=== PATIENT | female | born 1985 | race Caucasian/White ===

== ENCOUNTER 2016-08-28 19:38 | Emergency (ER) | payer OTHER ==
[~2016-08-28] VITALS: Ht 162.6 cm; Wt 75.0 kg
[~2016-08-28 19:38] MED LIST: BCP TD; FLOVENT0.044 MG/A IH; NUVARING1 ICR VG; PREDNISONE20 MG PO; VENTOLIN0.09 MG IH
[2016-08-28 19:43] VITALS: TEMP 98.2
[2016-08-28] MEDS ORDERED: LEXAPRO20 MG PO (19:47)
[2016-08-28] MEDS ORDERED: PRENATAL (19:48)
[2016-08-28 20:21] LABS: PH 5 (5-8); URINE APPEARANCE Clear; URINE BILIRUBIN Negative (NEGATIVE); URINE BLOOD Negative (NEGATIVE); URINE COLOR Colorless; URINE GLUCOSE Negative (NEGATIVE); URINE KETONE Negative (NEGATIVE); URINE UROBILINOGEN Negative (NEGATIVE)
[2016-08-28 20:28] LABS: URINE BACTERIA Rare /hpf; URINE RBC None Seen /hpf; URINE WBC 0-2 /hpf
[2016-08-28 20:41] VITALS: BP 118/69; PULSE 74
== END 2016-08-28 20:41 | disposition home or self-care (01) ==
LOC: COL.ER 19:38
PROVIDERS: Physician Assistant
DX: Z04.1 Encounter for examination and observation following transport accident (principal); Z34.91 Encounter for supervision of normal pregnancy, unspecified, first trimester

== ENCOUNTER 2017-04-03 11:27 | Outpatient (CLI) | payer BC ==
[~2017-04-03 11:27] MED LIST changes: +LEXAPRO20 MG PO; +PRENATAL
[2017-04-03 12:00] VITALS: BP 119/66; PULSE 74
[2017-04-03 12:03] VITALS: BP 111/69; PULSE 75; TEMP 98.5
[2017-04-03] MEDS ORDERED: CALCIUM CARBON650 M2 (12:11)
[2017-04-03 12:30] VITALS: BP 114/59; PULSE 77
[2017-04-03 13:00] VITALS: PULSE 64
[2017-04-03 14:00] VITALS: BP 114/62; PULSE 65
[2017-04-03 14:30] VITALS: BP 112/67; PULSE 66
== END 2017-04-03 16:25 | disposition home or self-care (01) ==
LOC: LDRO 11:27 → LDR 11:35 → LDRO 16:25
DX: O42.913 Preterm premature rupture of membranes, unspecified as to length of time between rupture and onset of labor, third trimester (principal); Z3A.36 36 weeks gestation of pregnancy
CPT/HCPCS: OP

== ENCOUNTER 2017-04-03 21:29 | Inpatient (IN) | payer BC ==
[~2017-04-03] VITALS: Ht 162.6 cm; Wt 100.0 kg
[2017-04-03] VITALS (7 sets, daily range): BP systolic 115–132; BP diastolic 59–78; PULSE 76–95; TEMP 97.5–99
[~2017-04-03 21:29] MED LIST changes: +CALCIUM CARBON650 M2
[2017-04-03 22:53] LABS: BASO % 0.2 % (0.0-2.0); EOS % 0.1 % (0-4.0); GRAN # 9.8 (1.4-6.5); GRAN % 78.3 % (42.2-75.2); HEMATOCRIT 37.5 % (37.0-47.0); HEMOGLOBIN 12.9 g/dl (12.5-16.0); LYMPH # 1.7 (1.2-3.4); LYMPH % 13.7 % (20.0-51.0); MEAN CELL VOLUME 86 fl (80.0-100.0); MEAN CORPUSCULAR HEMOGLOBIN 30 pg (27.0-31.0); MEAN CORPUSCULAR HGB CONC 34 g/dl (33.0-37.0); MONO # 0.9 (0.1-0.6); MONO % 6.8 % (1.7-9.3); PLATELET COUNT 263 K/mm3 (130-400); RED BLOOD COUNT 4.38 M/mm3 (4.10-5.30); REDCELL DISTRIBUTION WIDTH-CV 14.6 % (11.5-14.5); WHITE BLOOD COUNT 12.6 K/mm3 (4.8-10.8)
[2017-04-04] VITALS (28 sets, daily range): BP systolic 101–142; BP diastolic 51–81; PULSE 75–113; TEMP 97.2–98.6
[2017-04-05 08:00] VITALS: BP 117/62; PULSE 80; TEMP 97.5
[2017-04-05] MEDS ORDERED: IBU800 M1 PO (08:33)
[2017-04-05] MEDS ORDERED: PERCOCET 325 MG1 TA2 PO (08:33)
[2017-04-05 17:30] VITALS: BP 120/62; PULSE 84; TEMP 97.5
[2017-04-05 20:45] VITALS: BP 119/61; PULSE 64; TEMP 98
[2017-04-06 08:23] VITALS: BP 116/63; PULSE 77; TEMP 98.1
== END 2017-04-06 09:10 | disposition home or self-care (01) | DRG 775 ==
LOC: LDRO 21:29 → LDR 22:28 → OB 04-04 08:30
PROVIDERS: Student in an Organized Health Care Education/Training Program
PROC: 10E0XZZ Delivery of Products of Conception, External Approach (ICD-10-PCS; principal; 2017-04-04)
PROC: 0KQM0ZZ Repair Perineum Muscle, Open Approach (ICD-10-PCS; 2017-04-04)
DX: O99.824 Streptococcus B carrier state complicating childbirth (principal); O70.1 Second degree perineal laceration during delivery; O99.344 Other mental disorders complicating childbirth; F32.9 Major depressive disorder, single episode, unspecified; Z3A.37 37 weeks gestation of pregnancy; Z37.0 Single live birth
CPT/HCPCS: J2405; J2540; J2590; J7120

== ENCOUNTER 2019-01-09 11:37 | Inpatient (IN) | payer BC ==
[~2019-01-09] VITALS: Ht 162.6 cm; Wt 96.4 kg
[2019-01-09] VITALS (31 sets, daily range): BP systolic 94–137; BP diastolic 48–82; PULSE 64–104; TEMP 97.7–98.7
[~2019-01-09 11:37] MED LIST changes: +IBU800 M1 PO; +PERCOCET 325 MG1 TA2 PO
[2019-01-09] MEDS ORDERED: ZANTAC 150MG T150 MG PO (11:51)
[2019-01-09] MEDS ORDERED: CALCIUM CARBON650 M2 (11:51)
--- NOTE | 2019-01-09 12:00 | NUR ---
1135 G2L1 at 37.5 weeks gestation to R5 for heart rate monitoring. She was sent over from the office where the FHR was 80-100 bpm. Patient changed into gown, wedged left in bed. Dr. Harding at bedside, bedside sono performed. EFMs explained and applied and FHR 140 bpm with moderate variability. Plan of care to continue to monitor FHR over the next hour.
--- NOTE | 2019-01-09 12:16 | NUR ---
FHR intermittently tracing, this nurse at bedside adjusting EFM, FHR tracing at 80-90 bpm during this time. 1221 FHR returns to baseline of [address] Barrett called and updated. Orders to continue monitoring.
--- NOTE | 2019-01-09 14:10 | NUR ---
Dr. Harding on unit. Reviews FHR tracing. To patient room, discusses plan of care to induce labor tonight. SVE /3. Labor induction orders received.
--- NOTE | 2019-01-09 14:45 | NUR ---
Pitocin started at 2mu per orders and protocol.
--- NOTE | 2019-01-09 15:21 | NUR ---
FHR down to 80-90 bpm over 3 minutes. Spontaneous return to baseline of 130 bpm.
[2019-01-09 15:39] LABS: BASO % 0.4 % (0.0-2.0); EOS # 0.1 (0.0-0.7); EOS % 0.5 % (0-4.0); GRAN # 8.3 (1.4-6.5); GRAN % 75.1 % (42.2-75.2); LYMPH # 1.9 (1.2-3.4); LYMPH % 16.9 % (20.0-51.0); MEAN CELL VOLUME 86 fl (80.0-100.0); MEAN CORPUSCULAR HEMOGLOBIN 28 pg (27.0-31.0); MEAN CORPUSCULAR HGB CONC 33 g/dl (33.0-37.0); MEAN PLATELET VOLUME 10.4 fl (7.4-10.4); MONO # 0.7 (0.1-0.6); MONO % 6.4 % (1.7-9.3); PLATELET COUNT 256 K/mm3 (130-400); RED BLOOD COUNT 4.23 M/mm3 (4.10-5.30); REDCELL DISTRIBUTION WIDTH-CV 14.6 % (11.5-14.5)
[2019-01-09 15:54] LABS: HEMATOCRIT 36.4 % (37.0-47.0)
--- NOTE | 2019-01-09 17:15 | NUR ---
Dr. Harding at bedside. Reviews FHR tracing. Discusses plan of care. Orders to continue increasing pitocin per protocol. Pitocin increased to 10mu.
--- NOTE | 2019-01-09 17:40 | NUR ---
1724 FHR down to 80-90 bpm, intermittently tracing. This nurse to room to adjust EFM. Patient turned to left side, IVF bolus started, pitocin turned off and O2 applied at 10L per mask. 1730 FHR not tracing but briefly heard at [address] Barrett on unit and called to patient room. Dr. Harding called. [id number] SVE with AROM and scalp electrode placement by Dr. Barrett. Scalp electrode not tracing FHR, but EFM traces at 90-110 bpm from 0530-5261. [address] Barrett calls c/s. Dr. Harding updated. 1739 Patient to OR via bed.
--- NOTE | 2019-01-09 17:53 | NUR ---
[id number] FHR tracing by scalp electrode at 120 bpm in OR.
--- NOTE | 2019-01-09 21:00 | NUR ---
2100 PERICARE DONE. MOVED FROM SIDE TO SIDE AND ABD BINDER ON. IV INFUSED AND TO INT. REG DIET TAKEN. BABY OUT TO ROOM
[2019-01-10 05:00] VITALS: BP 93/51; PULSE 62; TEMP 97.6
[2019-01-10 06:02] LABS: HEMOGLOBIN 10.9 g/dl (12.5-16.0)
[2019-01-10 06:04] LABS: HEMATOCRIT 33.5 % (37.0-47.0)
[2019-01-10 07:25] VITALS: BP 130/92; PULSE 77; TEMP 98.5
[2019-01-10 11:30] VITALS: BP 106/56; PULSE 70; TEMP 98.5
[2019-01-10 17:00] VITALS: BP 101/48; PULSE 64; TEMP 98.9
[2019-01-10 20:00] VITALS: BP 109/59; PULSE 64; TEMP 98
[2019-01-11 04:00] VITALS: BP 101/62; PULSE 74; TEMP 97.9
[2019-01-11 07:45] VITALS: BP 116/82; PULSE 82; TEMP 98.3
[2019-01-11] MEDS ORDERED: MOTRIN 800800 MG/TAB PO (09:36)
[2019-01-11] MEDS ORDERED: PERCOCET 325 MG1 TA2 PO (09:37)
== END 2019-01-11 16:30 | disposition home or self-care (01) | DRG 787 ==
LOC: LDRO 11:37 → LDR 11:37 → LDRO 14:15 → LDR 14:15 → OB 19:30
PROVIDERS: ADMIT Obstetrics & Gynecology
PROC: 10D00Z1 Extraction of Products of Conception, Low, Open Approach (ICD-10-PCS; principal; 2019-01-09)
PROC: 3E033VJ Introduction of Other Hormone into Peripheral Vein, Percutaneous Approach (ICD-10-PCS; 2019-01-09)
DX: O76 Abnormality in fetal heart rate and rhythm complicating labor and delivery (principal); O98.82 Other maternal infectious and parasitic diseases complicating childbirth; B95.1 Streptococcus, group B, as the cause of diseases classified elsewhere; Z3A.37 37 weeks gestation of pregnancy; Z37.0 Single live birth; O99.344 Other mental disorders complicating childbirth; J45.909 Unspecified asthma, uncomplicated; O99.214 Obesity complicating childbirth; O61.8 Other failed induction of labor
CPT/HCPCS: J0690; J1885; J2175; J2370; J2405; J2540; J2590; J3010; J7120

== ENCOUNTER 2022-01-29 04:11 | Inpatient (IN) | payer BC ==
[2022-01-29] VITALS (24 sets, daily range): BP systolic 92–132; BP diastolic 55–83; PULSE 64–126; TEMP 97.7–98.7
[~2022-01-29] VITALS: Ht 165.1 cm; Wt 95.5 kg
[~2022-01-29 04:11] MED LIST changes: +MOTRIN 800800 MG/TAB PO; +ZANTAC 150MG T150 MG PO
[2022-01-29 05:19] LABS: BASO % 0.2 % (0.0-2.0); EOS % 0.1 % (0.0-4.0); GRAN # 7.6 K/mm3 (1.4-6.5); GRAN % 86.1 % (42.2-75.2); HEMATOCRIT 38.6 % (37.0-47.0); HEMOGLOBIN 13.1 g/dl (12.5-16.0); LYMPH # 0.5 K/mm3 (1.2-3.4); MEAN CELL VOLUME 86 fl (80.0-100.0); MEAN CORPUSCULAR HEMOGLOBIN 29 pg (27-31); MEAN CORPUSCULAR HGB CONC 34 g/dl (33.0-37.0); MONO # 0.6 K/mm3 (0.1-0.6); MONO % 6.9 % (1.7-9.3); PLATELET COUNT 222 K/mm3 (130-400); RED BLOOD COUNT 4.51 M/mm3 (4.10-5.30); REDCELL DISTRIBUTION WIDTH-CV 14.2 % (11.5-14.5)
--- NOTE | 2022-01-29 06:30 | NUR ---
0615- This RN to bedside, Pt in bathroom. Verbal report recieved from Lety Quesada RN. Akiko, MERLYN at bedside for epidural placment. 0617- Pt sitting on side of bed for epidural placement. O2 sat monitor on and tracing maternal HR. 0624- Single shot by PULLING UNIT FLOORHAND, see anesthesia record. 0627- Pt assisted to semi-flowlers with WL. EFM and TOCO adjusted. O2 sat monitor off.
--- NOTE | 2022-01-29 07:00 | NUR ---
0648- FHR deceleration noted down to 60's, lasting approx. 2mins. SVE by this RN /-2. Anjelica Collazo RN at bedside. Pt assisted to LL. 0653- Bhatt placed with Pt LL. O2 sat monitor on and tracing maternal HR. 0656- FHR decel noted, down to 60, Pt assisted into RHODA position, tolerated well.
--- NOTE | 2022-01-29 07:15 | NUR ---
0706- Dr Hsieh at bedside. SVE /-2, reviews strip. Pt assisted to LL with right leg on stirrup. EFM and TOOC adjusted. discusses strip and POC with Pt/. This RN remains at bedside. remains on unit.
--- NOTE | 2022-01-29 07:45 | NUR ---
Recurrent FHR late decelerations noted with each UC. 0733- Pt repositioned to RL with LLS. SVE by this RN 8-/-2. 0739- Dr Hsieh at bedside. SVE , FSE placed per RN request. remains at nurses station monitoring strip. This RN remains at bedside.
--- NOTE | 2022-01-29 08:00 | NUR ---
0752- Dr Hsieh at bedside. SVE 9100/+2, Pt repositioned to LL. 0755- FHR decel with marked variability. SVE by , complete/+2. Pt and room prepped for delivery. FHR variables down to 60's with marked variability. Bryan, nursery RN and Chris, propellant charge loader at bedside. 0758- Pt pushes per MD command. 0759- FSE off, Vacuum applied by . Pt pushes with UC. 0800- of viable male , to mother's abd, cord clamped and cut, to warmer, tended to by nursery staff. 0802- Spontaneous delivery of placenta. Fundus massaged to firm by . 0804- Pitocin started at 333ml/hr. 1st degree repair by . pericare completed. Clean chux and ice pack under Pt. Pt reposiitoned to high fowlers.
[2022-01-30 01:15] VITALS: BP 106/45; PULSE 84; TEMP 97.4
[2022-01-30 05:15] VITALS: BP 105/51; PULSE 80; TEMP 98.4
[2022-01-30 08:00] VITALS: BP 118/68; PULSE 70; TEMP 97.9
[2022-01-30] MEDS ORDERED: IBU800 M1 PO (09:11)
== END 2022-01-30 10:45 | disposition home or self-care (01) | DRG 807 ==
LOC: LDRO 04:11 → OB 04:50 → LDR 04:50 → OB 11:00
PROVIDERS: ADMIT Obstetrics & Gynecology
PROC: 10D07Z6 Extraction of Products of Conception, Vacuum, Via Natural or Artificial Opening (ICD-10-PCS; principal; 2022-01-29)
PROC: 0HQ9XZZ Repair Perineum Skin, External Approach (ICD-10-PCS; 2022-01-29)
DX: O48.0 Post-term pregnancy (principal); Z37.0 Single live birth; O70.0 First degree perineal laceration during delivery; O76 Abnormality in fetal heart rate and rhythm complicating labor and delivery; O34.211 Maternal care for low transverse scar from previous cesarean delivery; O99.214 Obesity complicating childbirth; O99.344 Other mental disorders complicating childbirth; F32.A Depression, unspecified; F41.9 Anxiety disorder, unspecified; O99.62 Diseases of the digestive system complicating childbirth; K21.9 Gastro-esophageal reflux disease without esophagitis; Z3A.41 41 weeks gestation of pregnancy; Z86.16 Personal history of COVID-19
CPT/HCPCS: J2590; J7120